=== PATIENT | male | born 1995 | race Caucasian/White ===

== ENCOUNTER 2022-09-06 21:59 | Emergency (ER) | payer BC, SELFPAY ==
[2022-09-06] MEDS ORDERED: Lidocaine 1% PF 5 ML VIAL ONE (22:09)
[2022-09-06] MEDS ORDERED: Bupivacaine PF 0.5% 30 ML VIAL ONE ×2 (22:09→22:32)
[2022-09-06] MEDS ORDERED: Bacitracin 1 PK ONE (22:31)
[2022-09-06] MEDS ORDERED: Boostrix 0.5 ML (Tdap) VIAL (>/=7 yrs of age) ONE (22:33)
[2022-09-06] MEDS ORDERED: Cephalexin 500 MG CAP ONE (23:12)
== END 2022-09-07 00:10 | disposition home or self-care (01) ==
LOC: MADERS 21:59
DX: S62.631B Displaced fracture of distal phalanx of left index finger, initial encounter for open fracture (principal); F17.210 Nicotine dependence, cigarettes, uncomplicated; Z23 Encounter for immunization; W26.8XXA Contact with other sharp object(s), not elsewhere classified, initial encounter
CPT/HCPCS: 12001; 90471; 90715; S0020